=== PATIENT | male | born 1965 | race Two or more races ===

== ENCOUNTER 2016-08-26 14:08 | Inpatient (IN) | payer OTHER ==
--- NOTE | 2016-08-26 17:23 | HP ---
CIWA Score - CIWA Score Nausea/Vomitin Muscle Tremors: 3 Anxiety: 0-No Anxiety, at Ease Agitation: 3 Paroxysmal Sweats: No Perspiration Orientation: 0-Oriented Tacttile Disturbances: 0-None Auditory Disturbances: 0-None Visual Disturbances: 0-None Headache: 5-Severe CIWA-Ar Total Score: 14 Admission ROS BHS - HPI Chief Complaint: Withdrawal Sx Allergies/Adverse Reactions: Allergies Allergy/AdvReac Type Severity Reaction Status Date / Time No Known Allergies Allergy Verified 05/07/15 17:01 History of Present Illness: 51 year old male with a long hx of ETOH dependence and will be admitted for detox. Patient has been in previous detox. Denies significant sobriety. Last detox a year ago and relapsed after discharged. Exam Limitations: No Limitations - Ebola screening Have you traveled outside of the country in the last 21 days: No Have you had contact with anyone from an Ebola affected area: No Have you been sick,other than usual withdrawal symptoms: No Do you have a fever: No - Review of Systems Constitutional: No Symptoms Reported EENT: reports: No Symptoms Reported Respiratory: reports: No Symptoms reported Cardiac: reports: No Symptoms Reported GI: reports: Nausea : reports: No Symptoms Reported Musculoskeletal: reports: No Symptoms Reported Integumentary: reports: No Symptoms Reported Neuro: reports: Headache, Tremors Endocrine: reports: No Symptoms Reported Hematology: reports: No Symptoms Reported Psychiatric: reports: Orientated x3 Other Systems: Reviewed and Negative Patient History - Patient Medical History Hx Anemia: No Hx Asthma: No Hx Chronic Obstructive Pulmonary Disease (COPD): No Hx Cancer: No Hx Cardiac Disorders: No Hx Congestive Heart Failure: No Hx Hypertension: No Hx Hypercholesterolemia: No Hx Pacemaker: No HX Cerebrovascular Accident: No Hx Seizures: No Hx Dementia: No Hx Diabetes: No Hx Gastrointestinal Disorders: No Hx Liver Disease: No Hx Genitourinary Disorders: No Hx Sexually Transmitted Disorders: No Hx Renal Disease (ESRD): No Hx Thyroid Disease: No Hx Human Immunodeficiency Virus (HIV): No Hx Hepatitis C: No Hx Depression: No Hx Suicide Attempt: No Hx Bipolar Disorder: No Hx Schizophrenia: No - Patient Surgical History Past Surgical History: No Hx Neurologic Surgery: No Hx Cataract Extraction: No Hx Cardiac Surgery: No Hx Lung Surgery: No Hx Breast Surgery: No Hx Breast Biopsy: No Hx Abdominal Surgery: No Hx Appendectomy: No Hx Cholecystectomy: No Hx Genitourinary Surgery: No Hx Section: No Hx Orthopedic Surgery: No Anesthesia Reaction: No - PPD History Previous Implant?: Yes Documented Results: Negative w/proof Date: 03/30/16 Results: 0mm PPD to be Administered?: No - Smoking Cessation Smoking history: Current every day smoker Have you smoked in the past 12 months: Yes Aproximately how many cigarettes per day: 20 Cigars Per Day: 0 Hx Chewing Tobacco Use: No Initiated information on smoking cessation: Yes 'Breaking Loose' booklet given: 08/26/16 - Substance & Tx. History Hx Alcohol Use: Yes Hx Substance Use: Yes Substance Use Type: Alcohol, Cocaine Hx Substance Use Treatment: Yes (detox) - Substances Abused Alcohol Route: Oral Frequency: Daily Amount used: Vodka 1 pint, Beer 16 oz of 20 cans/day Age of first use: 18 Date of Last Use: 08/26/16 Cocaine Route: Smoking Frequency: 1-2 times per week Amount used: $100 Age of first use: 33 Date of Last Use: 08/25/16 Family Disease History - Family Disease History Family Disease History: Other: Mother (dementia) Admission Physical Exam [facility] - Vital Signs Vital Signs: Vital Signs - 24 hr 08/26/16 16:32 Temperature 96.0 F L Pulse Rate 102 H Respiratory 18 Rate Blood Pressure 109/60 - Physical General Appearance: Yes: Alcohol on Breath HEENTM: Yes: EOMI, Normocephalic Respiratory: Yes: Chest Non-Tender, Lungs Clear, Normal Breath Sounds Neck: Yes: No masses,lesions,Nodules, Supple Breast: Yes: Breast Exam Deferred Cardiology: Yes: Regular Rhythm, Regular Rate, S1, S2 Abdominal: Yes: Normal Bowel Sounds, Non Tender, Flat, Soft Genitourinary: Yes: Within Normal Limits Back: Yes: Within Normal Limits Musculoskeletal: Yes: Within Normal Limits Extremities: Yes: Within Normal Limits Neurological: Yes: Fully Oriented, Alert Integumentary: Yes: Within Normal Limits Lymphatic: Yes: Within Normal Limits Cleared for Admission [facility] - Detox or Rehab [facility] Level of Care: Medically Managed Detox Regimen/Protocol: Librium [facility] Breath Alcohol Content Breath Alcohol Content: 0.096 Urine Drug Screen - Results Drug Screen Negative: No Urine Drug Screen Results: KENIA-Cocaine
[2016-08-26] MEDS ORDERED: chlordiazePOXIDE HCL 25 MG CAPSULE PO PRN (17:38)
[2016-08-26] MEDS ORDERED: hydrOXYzine PAMOATE 50 MG CAPSULE (FP) PO PRN (17:38)
[2016-08-26] MEDS ORDERED: MAGNESIUM HYDROX 2400MG/30ML ORAL SUSPENSION 30 ML CUP PO PRN (17:38)
[2016-08-26] MEDS ORDERED: P-EPHED 60MG/TRIPROLIDI 2.5MG TABLET PO PRN (17:38)
[2016-08-26] MEDS ORDERED: LOPERAMIDE HCL 2 MG CAPSULE PO PRN (17:38)
[2016-08-26] MEDS ORDERED: ACETAMINOPHEN 325 MG TABLET (FP) PO PRN (17:38)
[2016-08-26] MEDS ORDERED: MAG HYDROX/AL HYDROX/SIMETH 30 ML UNIT-DOSE CUP PO PRN (17:38)
[2016-08-26] MEDS ORDERED: IBUPROFEN 400 MG TABLET (FP) PO PRN (17:38)
[2016-08-26] MEDS ORDERED: MAGNESIUM CITRATE 300 ML BOTTLE PO PRN (17:38)
[2016-08-26] MEDS ORDERED: NICOTINE POLACRILEX 2 MG GUM BC PRN (17:38)
[2016-08-26] MEDS ORDERED: MENTHOL/PHENOL 1 EACH UD MM PRN (17:38)
[2016-08-26] MEDS ORDERED: guaiFENesin/D-METHORPHAN HB 10 ML UNIT-DOSE CUPS PO PRN (17:38)
[2016-08-26] MEDS ORDERED: chlordiazePOXIDE HCL 25 MG CAPSULE PO ONE (18:45)
[2016-08-26] MEDS: NICOTINE 21 MG/24 HOURS TOPICAL PATCH TD SCH (19:01)
[2016-08-26] MEDS: THIAMINE HCL 100 MG TABLET (FP) PO SCH (22:28)
[2016-08-26] MEDS: chlordiazePOXIDE HCL 25 MG CAPSULE PO SCH (22:28)
[2016-08-26] MEDS: diphenhydrAMINE HCL 50 MG CAPSULE PO PRN (22:30)
[2016-08-26 23:06] LABS: PH,URINE 5.5 (5.0-8.0); URINE APPEARANCE CLEAR; URINE BILIRUBIN NEGATIVE (NEGATIVE); URINE BLOOD NEGATIVE (NEGATIVE); URINE COLOR LT. YELLOW; URINE GLUCOSE (UA) NEGATIVE (NEGATIVE); URINE KETONE NEGATIVE (NEGATIVE); URINE LEUK ESTERASE NEGATIVE (NEGATIVE); URINE NITRITE NEGATIVE (NEGATIVE); URINE PROTEIN NEGATIVE (NEGATIVE); URINE UROBILINOGEN 0.2 E.U/dl E.U./dl (0.2-1.0)
[2016-08-27] MEDS: chlordiazePOXIDE HCL 25 MG CAPSULE PO SCH ×4 (05:35→22:18)
--- NOTE | 2016-08-27 09:19 | PN ---
S CIWA - CIWA Score Nausea/Vomitin-No Nausea/No Vomiting Muscle Tremors: 4-Moderate,w/Arms Extend Anxiety: 4-Mod. Anxious/Guarded Agitation: 4-Moderately Restless Paroxysmal Sweats: 3 Orientation: 0-Oriented Tacttile Disturbances: 0-None Auditory Disturbances: 0-None Visual Disturbances: 0-None Headache: 1-Very Mild CIWA-Ar Total Score: 16 BHS Progress Note (SOAP) Subjective: sweats shakes interrupted sleep agitation headache Objective: 08/27/16 09:25 Vital Signs Temperature 95.9 F L 08/27/16 05:53 Pulse Rate 63 08/27/16 05:53 Respiratory Rate 16 08/27/16 05:53 Blood Pressure 100/51 08/27/16 05:53 O2 Sat by Pulse Oximetry (%) Laboratory Tests 08/26/16 22:27 Urine Color Lt. yellow Urine Appearance Clear Urine pH 5.5 Ur Specific [place] 1.020 Urine Protein Negative Urine Glucose (UA) Negative Urine Ketones Negative Urine Blood Negative Urine Nitrite Negative Urine Bilirubin Negative Urine Urobilinogen 0.2 e.u/dl Ur Leukocyte Esterase Negative labs pending awake/alert ambulating no acute distress Assessment: 08/27/16 09:26 withdrawal sx Plan: continue detox increase fluids labs pending tylenol/motrin prn
[2016-08-27 10:18] LABS: MCH 31.8 pg (25.7-33.7); MEAN CELL VOLUME 93.4 fl (80-96); PLATELET COUNT 224 K/MM3 (134-434); RDW 13.5 % (11.9-15.9); WHITE BLOOD COUNT 9.2 K/mm3 (4.0-10.0)
[2016-08-27 10:32] LABS: ALBUMIN 3.4 g/dl (3.4-5.0); ALK PHOS 111 U/L (45-117); ANION GAP 5 (8-16); CO2 30 mmol/L (21-32); CREATININE 0.9 mg/dL (0.7-1.3); GLUCOSE,RANDOM 83 mg/dL (74-106); SGOT/AST 21 U/L (15-37); SGPT/ALT 22 U/L (12-78); TOT PROT 6.1 g/dl (6.4-8.2)
[2016-08-27] MEDS: NICOTINE 21 MG/24 HOURS TOPICAL PATCH TD SCH (10:45)
[2016-08-27] MEDS: PRENATAL VITAMINS W/ FOLIC ACID TABLET (FP) PO SCH (10:46)
[2016-08-27 11:10] LABS: HIV 1 & 2 AB NEGATIVE; HIV 1 AGp24 NEGATIVE
[2016-08-27] MEDS ORDERED: INFLUENZA VACCINE 45 MCG/0.5 ML (MDV 16-17) IM ONE (12:00)
--- NOTE | 2016-08-27 16:32 | EKG ---
Test Reason : Blood Pressure : / mmHG Vent. Rate : 080 BPM Atrial Rate : 080 BPM P-R Int : 146 ms QRS Dur : 076 ms QT Int : 370 ms P-R-T Axes : 083 077 071 degrees QTc Int : 426 ms NORMAL SINUS RHYTHM NORMAL ECG NO PREVIOUS ECGS AVAILABLE Confirmed by DANNIELLE JAMES MD ([id number]) on 08/27/2016 4:32:25 PM Referred By: Confirmed By:DANNIELLE JAMES MD
[2016-08-27] MEDS: diphenhydrAMINE HCL 50 MG CAPSULE PO PRN (22:18)
[2016-08-27] MEDS: THIAMINE HCL 100 MG TABLET (FP) PO SCH (22:18)
[2016-08-28] MEDS: chlordiazePOXIDE HCL 25 MG CAPSULE PO SCH ×3 (05:51→18:30)
--- NOTE | 2016-08-28 09:40 | PN ---
S CIWA - CIWA Score Nausea/Vomitin Muscle Tremors: 3 Anxiety: 3 Agitation: 2 Paroxysmal Sweats: 2 Orientation: 0-Oriented Tacttile Disturbances: 0-None Auditory Disturbances: 0-None Visual Disturbances: 1-Very Mild Sensitivity Headache: 2-Mild CIWA-Ar Total Score: 15 S Progress Note (SOAP) Objective: 08/28/16 09:39 Laboratory Tests 08/26/16 08/27/16 08/27/16 22:27 06:30 06:30 WBC 9.2 RBC 4.26 Hgb 13.5 Hct 39.8 MCV 93.4 MCHC 34.0 RDW 13.5 Plt Count 224 D MPV 9.0 Sodium 140 Potassium 4.1 Chloride 105 Carbon Dioxide 30 Anion Gap 5 L BUN 13 Creatinine 0.9 Creat Clearance w eGFR > 60 Random Glucose 83 Calcium 9.0 Total Bilirubin 1.0 D AST 21 D ALT 22 Alkaline Phosphatase 111 Total Protein 6.1 L Albumin 3.4 Urine Color Lt. yellow Urine Appearance Clear Urine pH 5.5 Ur Specific [place] 1.020 Urine Protein Negative Urine Glucose (UA) Negative Urine Ketones Negative Urine Blood Negative Urine Nitrite Negative Urine Bilirubin Negative Urine Urobilinogen 0.2 e.u/dl Ur Leukocyte Esterase Negative RPR Titer HIV 1&2 Antibody Screen HIV P24 Antigen 08/27/16 08/27/16 06:30 08:40 WBC RBC Hgb Hct MCV MCHC RDW Plt Count MPV Sodium Potassium Chloride Carbon Dioxide Anion Gap BUN Creatinine Creat Clearance w eGFR Random Glucose Calcium Total Bilirubin AST ALT Alkaline Phosphatase Total Protein Albumin Urine Color Urine Appearance Urine pH Ur Specific [place] Urine Protein Urine Glucose (UA) Urine Ketones Urine Blood Urine Nitrite Urine Bilirubin Urine Urobilinogen Ur Leukocyte Esterase RPR Titer Nonreactive HIV 1&2 Antibody Screen Negative HIV P24 Antigen Negative Vital Signs - 24 hr 08/27/16 08/27/16 08/27/16 10:34 14:26 17:56 Temperature 98.1 F 97.9 F 96.3 F L Pulse Rate 81 77 66 Respiratory 20 16 16 Rate Blood Pressure 117/61 113/57 97/52 08/27/16 08/28/16 08/28/16 22:38 00:30 03:30 Temperature 97.7 F Pulse Rate 74 Respiratory 16 18 18 Rate Blood Pressure 110/64 08/28/16 06:28 Temperature 97.3 F L Pulse Rate 62 Respiratory 16 Rate Blood Pressure 105/88 Assessment: 08/28/16 09:39 ongoing withdrawal Plan: continue detox protocol
[2016-08-28] MEDS: NICOTINE 21 MG/24 HOURS TOPICAL PATCH TD SCH (10:27)
[2016-08-28] MEDS: PRENATAL VITAMINS W/ FOLIC ACID TABLET (FP) PO SCH (10:27)
[2016-08-28] MEDS: THIAMINE HCL 100 MG TABLET (FP) PO SCH (22:43)
[2016-08-28] MEDS: diphenhydrAMINE HCL 50 MG CAPSULE PO PRN (22:43)
[2016-08-28] MEDS: chlordiazePOXIDE 5 MG CAPSULE PO SCH (22:43)
[2016-08-29] MEDS: chlordiazePOXIDE 5 MG CAPSULE PO SCH ×3 (05:42→17:42)
[2016-08-29] MEDS: PRENATAL VITAMINS W/ FOLIC ACID TABLET (FP) PO SCH (10:18)
[2016-08-29] MEDS: NICOTINE 21 MG/24 HOURS TOPICAL PATCH TD SCH (10:18)
--- NOTE | 2016-08-29 13:29 | PN ---
S Progress Note (SOAP) Subjective: ALERT,,IRRITABLE,INTERRUPTED SLEEP Objective: 08/29/16 13:28 Vital Signs Temperature 96.8 F L 08/29/16 10:00 Pulse Rate 65 08/29/16 10:00 Respiratory Rate 18 08/29/16 10:00 Blood Pressure 120/71 08/29/16 10:00 O2 Sat by Pulse Oximetry (%) Assessment: 08/29/16 13:28 WITHDRAWAL SYMPTOM Plan: CONTINUE DETOX,DISCHARGE IN AM
[2016-08-29] MEDS: THIAMINE HCL 100 MG TABLET (FP) PO SCH (22:12)
[2016-08-29] MEDS: chlordiazePOXIDE HCL 10 MG CAPSULE PO SCH (22:12)
[2016-08-30] MEDS: chlordiazePOXIDE HCL 10 MG CAPSULE PO SCH (06:50)
[2016-08-30 07:16] VITALS: BP 110/58; PULSE 60; TEMP 97.7
--- NOTE | 2016-08-30 08:56 | PN ---
S Progress Note (SOAP) Subjective: ALERT,NO COMPLAINT Objective: 08/30/16 08:55 Vital Signs Temperature 97.7 F 08/30/16 06:00 Pulse Rate 60 08/30/16 06:00 Respiratory Rate 16 08/30/16 06:00 Blood Pressure 110/58 08/30/16 06:00 O2 Sat by Pulse Oximetry (%) Assessment: 08/30/16 08:55 DETOX COMPLETED,NO WITHDRAWAL SYMPTOM Plan: DISCHARGE TODAY,FOLLOWUP WITH AFTER CARE PROGRAM ARRANGEMENT
--- NOTE | 2016-08-30 08:59 | DS ---
[facility] Detox Discharge Summary Admission Date: 08/26/16 Discharge Date: 08/30/16 - History Present History: Alcohol Dependence, Cocaine Dependence Additional Comments: FOLLOW WITH AFTER CARE PROGRAM ARRANGEMENT - Physical Exam Results Vital Signs: Vital Signs Temperature 97.7 F 08/30/16 06:00 Pulse Rate 60 08/30/16 06:00 Respiratory Rate 16 08/30/16 06:00 Blood Pressure 110/58 08/30/16 06:00 O2 Sat by Pulse Oximetry (%) Pertinent Admission Physical Exam Findings: WITHDRAWAL SYMPTOM - Treatment Hospital Course: Detox Protocol Followed, Detoxed Safely, Responded well, Discharged Condition Good Patient has Accepted a Rehab Referral to: [facility]ED - Medication Discharge Medications: Ambulatory Orders NK [No Known Home Medication] 08/26/16 - Diagnosis (1) Alcohol dependence with uncomplicated withdrawal Current Visit: No Status: Acute (2) Cocaine dependence Current Visit: No Status: Chronic Qualifiers: Substance use status: uncomplicated Qualified Code(s): F14.20 - Cocaine dependence, uncomplicated (3) Nicotine dependence Current Visit: No Status: Chronic Qualifiers: Nicotine product type: cigarettes Substance use status: uncomplicated Qualified Code(s): F17.210 - Nicotine dependence, cigarettes, uncomplicated - AMA Did Patient Leave Against Medical Advice: No
== END 2016-08-30 09:38 | disposition home or self-care (01) | DRG 774 ==
LOC: YASAS 14:08 → Y6N 18:35
PROVIDERS: ADMIT Internal Medicine Addiction Medicine; ATTEND Internal Medicine Addiction Medicine
PROC: HZ2ZZZZ Detoxification Services for Substance Abuse Treatment (ICD-10-PCS; principal; 2016-08-26)
DX: F10.230 Alcohol dependence with withdrawal, uncomplicated (principal); F14.20 Cocaine dependence, uncomplicated; F17.210 Nicotine dependence, cigarettes, uncomplicated
CPT/HCPCS: 36415; 80053; 81003; 85027; 86593; 87389; 93005; 93010; G0008; Q2037

== ENCOUNTER 2019-01-07 12:46 | Inpatient (IN) | payer OTHER | END 2019-01-09 10:55 | disposition home or self-care (01) | LOC: YASAS 12:46 → Y3N 14:20 ==

== ENCOUNTER 2020-03-11 12:26 | Inpatient (IN) | payer OTHER ==
--- NOTE | 2020-03-11 12:43 | BHS.RME ---
Substance Use & Tx History - Substance Use History Alcohol Substance amount: 1 pint Vodka, 2 x 16 ounce beer Frequency of use: Daily Substance route: Oral Date of Last Use: 03/11/20 (First drink 18 y, Seizure x 2, last was one month ago. Blackouts, last was one month ago. 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) Nicotine Substance amount: 10 cigs Frequency of use: Daily Substance route: Smoking Date of Last Use: 03/11/20 (First use age 14 y) - Last Treatment Date of last treatment: 12/19 to 12/20 left AMA from [facility] Treatment type: Substance Use Disorder (SPENCER) Physical/Psych/Mental Status - Behavior General Behavior: Increased activity (restlessness, agitation) Eye Contact: Normal - Cooperativeness Cooperativeness: Cooperative - Thinking Thought Processes: Tight Thought content: Future oriented - Physical Health Problems Is patient presently having any pain?: No Does patient presently have any injuries (include location): No Does patient currently have a fever: No CIWA Nausea/Vomitin-Mild Nausea/No Vomiting Muscle Tremors: None Anxiety: 2 Agitation: 1-Slight > Activity Paroxysmal Sweats: No Perspiration Orientation: 2-Disoriented Date<2 days Tacttile Disturbances: 0-None Auditory Disturbances: 0-None Visual Disturbances: 0-None Headache: 3-Moderate CIWA-Ar Total Score: 9
--- NOTE | 2020-03-11 13:00 | HP ---
CIWA Score Nausea/Vomitin-Mild Nausea/No Vomiting Muscle Tremors: None Anxiety: 2 Agitation: 1-Slight > Activity Paroxysmal Sweats: No Perspiration Orientation: 2-Disoriented Date<2 days Tacttile Disturbances: 0-None Auditory Disturbances: 0-None Visual Disturbances: 0-None Headache: 3-Moderate CIWA-Ar Total Score: 9 - Admission Criteria [facility]ASAS Guidelines: Admission for Medically Managed Detox: Requires at least one of the followin. CIWA greater than 12 2. Seizures within the past 24 hours 3. Delirium tremens within the past 24 hours 4. Hallucinations within the past 24 hours 5. Acute intervention needed for co occurring medical disorder 6. Acute intervention needed for co occurring psychiatric disorder 7. Severe withdrawal that cannot be handled at a lower level of care (continued vomiting, continued diarrhea, abnormal vital signs) requiring intravenous medication and/or fluids 8. Admitting History and Physical - Admission Chief Complaint: Mr. Ramsey is a 54 yo man who presents to [facility] requesting detox from alcohol. History of Present Illness: Mr. Ramsey is a 54 yo man who presents to [facility] requesting detox from alcohol. He left AMA after his last 2 admissions. PMH/PSH/Psych/legal: none SOC: homeless Substance Use History Alcohol Substance amount: 1 pint Vodka, 2 x 16 ounce beer Frequency of use: Daily Substance route: Oral Date of Last Use: 03/11/20 (First drink 18 y, Seizure x 2, last was one month ago. Blackouts, last was one month ago. 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) Nicotine Substance amount: 10 cigs Frequency of use: Daily Substance route: Smoking Date of Last Use: 03/11/20 (First use age 14 y) - Last Treatment Date of last treatment: 12/19 to 12/20 left AMA from [facility] Treatment type: Substance Use Disorder (SPENCER) History Source: Patient Limitations to Obtaining History: No Limitations - Past Surgical History Past Surgical History: Yes: None - Smoking History Smoking history: Current every day smoker Have you smoked in the past 12 months: Yes Aproximately how many cigarettes per day: 10 - Alcohol/Substance Use Hx Alcohol Use: Yes - Social History ADL: Independent 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 History of Recent Travel: No Admission ROS [facility] Allergies/Adverse Reactions: Allergies Allergy/AdvReac Type Severity Reaction Status Date / Time No Known Allergies Allergy Verified 12/20/19 15:02 Exam Limitations: No Limitations - Ebola screening Have you traveled outside of the country in the last 21 days: No Have you been sick,other than usual withdrawal symptoms: No Do you have a fever: No - Review of Systems Constitutional: No Symptoms Reported EENT: reports: No Symptoms Reported Respiratory: reports: No Symptoms reported Cardiac: reports: No Symptoms Reported GI: reports: No Symptoms Reported Musculoskeletal: reports: No Symptoms Reported Integumentary: reports: No Symptoms Reported Neuro: reports: No Symptoms reported Endocrine: reports: No Symptoms Reported Hematology: reports: No Symptoms Reported Psychiatric: reports: No Sypmtoms Reported Patient History - Patient Medical History Hx Anemia: No Hx Asthma: No Hx Chronic Obstructive Pulmonary Disease (COPD): No Hx Cancer: No Hx Cardiac Disorders: No Hx Congestive Heart Failure: No Hx Hypertension: No Hx Hypercholesterolemia: No Hx Pacemaker: No HX Cerebrovascular Accident: No Hx Seizures: No Hx Dementia: No Hx Diabetes: No Hx Gastrointestinal Disorders: No Hx Liver Disease: No Hx Genitourinary Disorders: No Hx Sexually Transmitted Disorders: No Hx Renal Disease (ESRD): No Hx Thyroid Disease: No Hx Human Immunodeficiency Virus (HIV): No (last negative 2017) Hx Hepatitis C: No Hx Depression: No Hx Suicide Attempt: No Hx Bipolar Disorder: No Hx Schizophrenia: No - Patient Surgical History Past Surgical History: No Hx Neurologic Surgery: No Hx Cataract Extraction: No Hx Cardiac Surgery: No Hx Lung Surgery: No Hx Breast Surgery: No Hx Breast Biopsy: No Hx Abdominal Surgery: No Hx Appendectomy: No Hx Cholecystectomy: No Hx Genitourinary Surgery: No Hx Section: No Hx Orthopedic Surgery: No Anesthesia Reaction: No - PPD History Date: 12/22/19 Results: 0mm - Smoking Cessation Smoking history: Current every day smoker Have you smoked in the past 12 months: Yes Aproximately how many cigarettes per day: 10 Cigars Per Day: 0 Hx Chewing Tobacco Use: No Initiated information on smoking cessation: Yes 'Breaking Loose' booklet given: 03/11/20 Admission Physical Exam [facility] - Physical General Appearance: Yes: No Apparent Distress, Appropriately Dressed, Thin HEENTM: Yes: EOMI, Hearing grossly Normal, Normocephalic, Normal Voice Respiratory: Yes: Lungs Clear, Normal Breath Sounds, No Respiratory Distress, No Accessory Muscle Use Neck: Yes: Within Normal Limits, Supple Breast: Yes: Breast Exam Deferred Cardiology: Yes: Regular Rhythm, Regular Rate, S1, S2 Abdominal: Yes: Normal Bowel Sounds, Non Tender, Flat, Soft Genitourinary: Yes: Other (deferred) Back: Yes: Normal Inspection Musculoskeletal: Yes: Gait Steady Extremities: Yes: Normal Inspection, Non-Tender Neurological: Yes: Alert, Normal Mood/Affect, Normal Response Integumentary: Yes: Normal Color, Dry, Warm, Other (acne on back) - Diagnostic (1) Homeless Current Visit: Yes Status: Acute (2) Alcohol dependence with uncomplicated withdrawal Current Visit: Yes Status: Acute (3) Nicotine dependence Current Visit: No Status: Acute Qualifiers: Nicotine product type: cigarettes Substance use status: uncomplicated Qualified Code(s): F17.210 - Nicotine dependence, cigarettes, uncomplicated (4) Insomnia Current Visit: Yes Status: Acute Cleared for Admission S - Detox or Rehab [facility] Level of Care: Medically Managed Detox Regimen/Protocol: Ativan Breathalyzer - Breathalyzer Breathalyzer: 0.300 Urine Drug Screen - Test Device Lot number: [id number] Expiration date: 04/15/20 - Control Is test valid?: Yes - Results Drug screen NEGATIVE: Yes Inpatient Rehab Admission - Rehab Decision to Admit Inpatient rehab admission?: No
[2020-03-11] MEDS ORDERED: MENTHOL/PHENOL 1 EACH UD MM PRN (13:11)
[2020-03-11] MEDS ORDERED: MAG HYDROX/AL HYDROX/SIMETH 30 ML UNIT-DOSE CUP PO PRN (13:11)
[2020-03-11] MEDS ORDERED: MAGNESIUM HYDROX 2400MG/30ML ORAL SUSPENSION 30 ML CUP PO PRN (13:11)
[2020-03-11] MEDS ORDERED: MAGNESIUM CITRATE 300 ML BOTTLE PO PRN (13:11)
[2020-03-11] MEDS ORDERED: ONDANSETRON *ODT* 4 MG TABLET SL PRN (13:11)
[2020-03-11] MEDS ORDERED: BISMUTH SUBSALICYLATE 262 MG/15 ML BTL PO PRN (13:11)
[2020-03-11] MEDS ORDERED: LORazepam 1 MG TABLET PO PRN (13:11)
[2020-03-11] MEDS ORDERED: NICOTINE POLACRILEX 2 MG GUM BUC PRN (13:11)
[2020-03-11] MEDS ORDERED: METHOCARBAMOL 500 MG TABLET PO PRN (13:11)
[2020-03-11] MEDS ORDERED: IBUPROFEN 400 MG TABLET (FP) PO PRN (13:11)
[2020-03-11] MEDS ORDERED: ACETAMINOPHEN 325 MG TABLET (FP) PO PRN ×2 (13:11)
[2020-03-11] MEDS ORDERED: NICOTINE 14 MG/24 HOURS TOPICAL PATCH TD SCH (13:30)
[2020-03-11 14:17] VITALS: BMI 19.8
--- NOTE | 2020-03-11 14:39 | CONSULT ---
[facility] Psychiatric Consult - Data Date of interview: 03/11/20 Admission source: Self-referred Identifying data: Mr Ramsey is a 54 years old single [place] male, unemployed with no source of income, homeless seeking detox treatment for alcohol Substance Abuse History: Reports history of alcohol use. Refer to addiction counselor's summary for further information Medical History: Unremarkable except for history of alcohol related seizure. Smokes 10 cigarettes daily Psychiatric History: Patient is known for multiple previous admissions to this facility. He denies history of previous psychiatric treatment. However, reports feeling anxious and sleeping poorly Physical/Sexual Abuse/Trauma History: Denies history of abuse as a child or DV relationship as an adult Mental Status Exam - Mental Status Exam Alert and Oriented to: Time, Place, Person Cognitive Function: Fair Mood: Anxious Affect: Appropriate Patient Behavior: Cooperative Speech Pattern: Clear Voice Loudness: Normal Thought Process: Intact, Goal Oriented Hallucinations: Denies Suicidal Ideation: Denies Homicidal Ideation: Denies Insight/Judgement: Poor Sleep: Poorly Appetite: Poor Muscle strength/Tone: Normal Gait/Station: Normal Psychiatric Findings - Problem List ([place] 1, 2,3) (1) Alcohol-induced anxiety disorder Current Visit: Yes Status: Acute (2) Alcohol-induced sleep disorder Current Visit: Yes Status: Acute (3) Alcohol dependence with uncomplicated withdrawal Current Visit: Yes Status: Acute (4) Nicotine dependence Current Visit: No Status: Chronic Qualifiers: Nicotine product type: cigarettes Substance use status: uncomplicated Qualified Code(s): F17.210 - Nicotine dependence, cigarettes, uncomplicated (5) Alcohol related seizure Current Visit: Yes Status: Resolved - Initial Treatment Plan Initial Treatment Plan: 1) Start Melatonin 10 mg po HS prn for insomnia. 2) Continue inpatient detoxification
[2020-03-11] MEDS ORDERED: MELATONIN 5 MG TABLETS PO PRN (14:50)
[2020-03-11] MEDS: hydrOXYzine PAMOATE 25 MG CAPSULE (FP) PO SCH ×3 (14:55→22:39)
[2020-03-11 16:46] LABS: HEMATOCRIT 36.9 % (35.4-49); HEMOGLOBIN 12.3 GM/dL (11.7-16.9); MCH 31.5 pg (25.7-33.7); MCHC 33.2 g/dl (32.0-35.9); MEAN CELL VOLUME 94.9 fl (80-96); MEAN PLT VOLUME 8.3 fl (7.5-11.1); PLATELET COUNT 201 K/MM3 (134-434); RBC 3.89 M/mm3 (4.00-5.60); RDW 15.5 % (11.9-15.9); WHITE BLOOD COUNT 4.4 K/mm3 (4.0-10.0)
[2020-03-11 16:53] LABS: ALBUMIN 3.7 g/dl (3.4-5.0); BILIRUBIN,TOTAL 0.7 mg/dL (0.2-1); BLOOD UREA NITROGEN 12.9 mg/dL (7-18); CREATININE 0.9 mg/dL (0.55-1.3); POTASSIUM 3.8 mmol/L (3.5-5.1)
[2020-03-11] MEDS: LORazepam 2 MG TABLET PO SCH ×2 (18:02→22:39)
[2020-03-11] MEDS ORDERED: MELATONIN 5 MG TABLETS PO SCH (22:00)
[2020-03-11] MEDS ORDERED: THIAMINE HCL 100 MG TABLET (FP) PO SCH (22:00)
[2020-03-12] MEDS: LORazepam 2 MG TABLET PO SCH (06:26)
[2020-03-12] MEDS: hydrOXYzine PAMOATE 25 MG CAPSULE (FP) PO SCH (06:26)
--- NOTE | 2020-03-12 09:32 | PN ---
S CIWA - CIWA Score Nausea/Vomitin-No Nausea/No Vomiting Muscle Tremors: 3 Anxiety: 2 Agitation: 0-Normal Activity Paroxysmal Sweats: No Perspiration Orientation: 0-Oriented (uncertain about day by one day.) Tacttile Disturbances: 0-None Auditory Disturbances: 0-None Visual Disturbances: 0-None Headache: 0-None Present CIWA-Ar Total Score: 5 BHS Progress Note (SOAP) Subjective: admitted yesterday for detox Objective: 03/12/20 10:35 Vital Signs - 24 hr 03/11/20 03/11/20 03/11/20 14:14 14:54 16:40 Temperature 97.6 F 98.0 F 98.2 F Pulse Rate 96 H 63 91 H Respiratory 20 18 18 Rate Blood Pressure 126/73 104/60 112/65 O2 Sat by Pulse 96 Oximetry (%) 03/11/20 03/11/20 03/12/20 20:27 21:35 05:48 Temperature 98.7 F 97.7 F Pulse Rate 73 62 Respiratory 18 18 Rate Blood Pressure 136/72 142/75 O2 Sat by Pulse 96 96 97 Oximetry (%) 03/12/20 09:23 Temperature 97.5 F L Pulse Rate 80 Respiratory 16 Rate Blood Pressure 134/73 O2 Sat by Pulse 98 Oximetry (%) Laboratory Tests 03/11/20 03/11/20 03/11/20 13:20 13:20 13:20 WBC 4.4 RBC 3.89 L Hgb 12.3 Hct 36.9 MCV 94.9 MCH 31.5 MCHC 33.2 RDW 15.5 D Plt Count 201 MPV 8.3 Sodium 141 Potassium 3.8 Chloride 106 Carbon Dioxide 25 Anion Gap 10 BUN 12.9 Creatinine 0.9 Est GFR (CKD-EPI)AfAm 110.27 Est GFR (CKD-EPI)NonAf 95.14 Random Glucose 134 H Calcium 8.0 L Total Bilirubin 0.7 AST 68 H ALT 40 Alkaline Phosphatase 122 H Total Protein 7.0 Albumin 3.7 Syphilis Serology Non-reactive covid-19 result pending Alert o x 3 nad oob ambulating with steady gait Assessment: 03/12/20 10:37 mild withdrawal sx stable Plan: cont detox increase po fluids maintain safety
[2020-03-12] MEDS ORDERED: PRENATAL VITAMINS W/ FOLIC ACID TABLET (FP) PO SCH (10:00)
[2020-03-12 10:35] VITALS: BP 134/73; PULSE 80; TEMP 97.5
--- NOTE | 2020-03-12 10:42 | DS ---
[facility] Detox Discharge Summary Admission Date: 03/11/20 Discharge Date: 03/12/20 - History Present History: Alcohol Dependence, Cocaine Dependence Additional Comments: Pt declined to continue with detox for personal reasons. All efforts to encourage pt to stay in treatment was unsuccessful. Pt met with counselor, Ms Maria G Isaac and was referred to follow up with [facility], [address] [place] [address], 7th floor. Pt instructed to follow up at [facility] clinic for medical management when needed. Pertinent Past History: Hx Epistaxis Hx Alcohol related Seizure Hx Anxiety disorder Hx Sleep Disorder - Physical Exam Results Vital Signs: Vital Signs Temperature 97.5 F L 03/12/20 09:23 Pulse Rate 80 03/12/20 09:23 Respiratory Rate 16 03/12/20 09:23 Blood Pressure 134/73 03/12/20 09:23 O2 Sat by Pulse Oximetry (%) 98 03/12/20 09:23 Alert o x 3;denies s/h/i nad oob ambulating with steady gait Pertinent Admission Physical Exam Findings: Laboratory Results - last 24 hr 03/11/20 03/11/20 03/11/20 13:20 13:20 13:20 WBC 4.4 RBC 3.89 L Hgb 12.3 Hct 36.9 MCV 94.9 MCH 31.5 MCHC 33.2 RDW 15.5 D Plt Count 201 MPV 8.3 Sodium 141 Potassium 3.8 Chloride 106 Carbon Dioxide 25 Anion Gap 10 BUN 12.9 Creatinine 0.9 Est GFR (CKD-EPI)AfAm 110.27 Est GFR (CKD-EPI)NonAf 95.14 Random Glucose 134 H Calcium 8.0 L Total Bilirubin 0.7 AST 68 H ALT 40 Alkaline Phosphatase 122 H Total Protein 7.0 Albumin 3.7 Syphilis Serology Non-reactive covid-19 result pending - Treatment Hospital Course: Discharged Condition Good, Rehab Referral Accepted Patient has Accepted a Rehab Referral to: [place], [place] - Medication Discharge Medications: Ambulatory Orders NK [No Known Home Medication] 12/20/19 - Diagnosis (1) Alcohol dependence with uncomplicated withdrawal Status: Acute (2) Nicotine dependence Status: Acute Qualifiers: Nicotine product type: cigarettes Substance use status: in withdrawal Qualified Code(s): F17.213 - Nicotine dependence, cigarettes, with withdrawal - AMA Did Patient Leave Against Medical Advice: Yes
[2020-03-13] MEDS ORDERED: LORazepam 1 MG TABLET PO SCH (05:00)
[2020-03-14] MEDS ORDERED: LORazepam 0.5 MG TABLET PO PRN
[2020-03-14] MEDS ORDERED: LORazepam 0.5 MG TABLET PO SCH (05:00)
[2020-03-15] MEDS ORDERED: LORazepam 0.5 MG TABLET PO ONE (05:00)
== END 2020-03-12 09:35 | disposition home or self-care (01) | DRG 775 ==
LOC: YASAS 12:26 → Y5N DETOX 14:15
PROVIDERS: ADMIT Allergy & Immunology; ATTEND Allergy & Immunology
PROC: HZ2ZZZZ Detoxification Services for Substance Abuse Treatment (ICD-10-PCS; principal; 2020-03-11)
DX: F10.230 Alcohol dependence with withdrawal, uncomplicated (principal); F17.210 Nicotine dependence, cigarettes, uncomplicated; F19.280 Other psychoactive substance dependence with psychoactive substance-induced anxiety disorder; F19.282 Other psychoactive substance dependence with psychoactive substance-induced sleep disorder; G47.00 Insomnia, unspecified; Z86.69 Personal history of other diseases of the nervous system and sense organs; Z56.0 Unemployment, unspecified; Z59.0 Homelessness
CPT/HCPCS: 36415; 80053; 85027; 86780; U0003

== ENCOUNTER 2020-09-25 18:08 | Inpatient (IN) | payer OTHER ==
[2020-09-25] MEDS ORDERED: IBUPROFEN 400 MG TABLET (FP) PO PRN (19:26)
[2020-09-25] MEDS ORDERED: ONDANSETRON *ODT* 4 MG TABLET SL PRN (19:26)
[2020-09-25] MEDS ORDERED: BISMUTH SUBSALICYLATE 524 MG/30 ML UD PO PRN (19:26)
[2020-09-25] MEDS ORDERED: MAG HYDROX/AL HYDROX/SIMETH 30 ML UNIT-DOSE CUP PO PRN (19:26)
[2020-09-25] MEDS ORDERED: MAGNESIUM HYDROX 2400MG/30ML ORAL SUSPENSION 30 ML CUP PO PRN (19:26)
[2020-09-25] MEDS ORDERED: LORazepam 1 MG TABLET PO PRN (19:26)
[2020-09-25] MEDS ORDERED: METHOCARBAMOL 500 MG TABLET PO PRN (19:26)
[2020-09-25] MEDS ORDERED: ACETAMINOPHEN 325 MG TABLET (FP) PO PRN (19:26)
[2020-09-25] MEDS ORDERED: MAGNESIUM CITRATE 300 ML BOTTLE PO PRN (19:26)
[2020-09-25] MEDS ORDERED: MENTHOL/PHENOL 1 EACH UD MM PRN (19:26)
[2020-09-25 19:44] VITALS: BMI 20.7
[2020-09-25] MEDS: PRENATAL VITAMINS W/ FOLIC ACID TABLET (FP) PO SCH (20:28)
[2020-09-25] MEDS ORDERED: QUEtiapine FUMARATE 25 MG TABLET PO ONE (22:00)
[2020-09-25] MEDS: LORazepam 2 MG TABLET PO SCH (22:39)
[2020-09-25] MEDS: THIAMINE HCL 100 MG TABLET (FP) PO SCH (22:39)
[2020-09-25] MEDS: hydrOXYzine PAMOATE 25 MG CAPSULE (FP) PO SCH (22:41)
[2020-09-25] MEDS: MELATONIN 5 MG TABLETS PO SCH (22:41)
[2020-09-26] MEDS: LORazepam 2 MG TABLET PO SCH ×4 (06:46→22:31)
[2020-09-26] MEDS: hydrOXYzine PAMOATE 25 MG CAPSULE (FP) PO SCH ×5 (06:46→22:32)
[2020-09-26] MEDS: PRENATAL VITAMINS W/ FOLIC ACID TABLET (FP) PO SCH (10:08)
[2020-09-26 11:51] LABS: HEMOGLOBIN 12.5 GM/dL (11.7-16.9); MCH 30.8 pg (25.7-33.7); MCHC 33.7 g/dl (32.0-35.9); MEAN CELL VOLUME 91.6 fl (80-96); PLATELET COUNT 217 K/MM3 (134-434); RBC 4.05 M/mm3 (4.00-5.60); RDW 15.4 % (11.9-15.9); WHITE BLOOD COUNT 6.4 K/mm3 (4.0-10.0)
[2020-09-26 11:53] LABS: POTASSIUM 3.9 mmol/L (3.5-5.1)
[2020-09-26 11:56] LABS: ALBUMIN 3.1 g/dl (3.4-5.0); CALCIUM 8.7 mg/dL (8.5-10.1)
[2020-09-26 12:00] LABS: CREATININE 0.6 mg/dL (0.55-1.3)
[2020-09-26 12:01] LABS: BILIRUBIN,TOTAL 1.8 mg/dL (0.2-1); TOT PROT 5.9 g/dl (6.4-8.2)
[2020-09-26] MEDS: THIAMINE HCL 100 MG TABLET (FP) PO SCH (22:31)
[2020-09-26] MEDS: MELATONIN 5 MG TABLETS PO SCH (22:32)
[2020-09-27] MEDS: LORazepam 1 MG TABLET PO SCH ×4 (05:19→22:21)
[2020-09-27] MEDS: hydrOXYzine PAMOATE 25 MG CAPSULE (FP) PO SCH ×5 (05:19→22:22)
[2020-09-27] MEDS: PRENATAL VITAMINS W/ FOLIC ACID TABLET (FP) PO SCH (10:51)
[2020-09-27 11:16] LABS: POTASSIUM 4.5 mmol/L (3.5-5.1)
[2020-09-27 11:21] LABS: BLOOD UREA NITROGEN 5.7 mg/dL (7-18); CALCIUM 8.7 mg/dL (8.5-10.1)
[2020-09-27 11:25] LABS: CREATININE 0.7 mg/dL (0.55-1.3)
[2020-09-27 11:27] LABS: BILIRUBIN,TOTAL 1.3 mg/dL (0.2-1)
[2020-09-27] MEDS: THIAMINE HCL 100 MG TABLET (FP) PO SCH (22:22)
[2020-09-27] MEDS: MELATONIN 5 MG TABLETS PO SCH (22:22)
[2020-09-28] MEDS ORDERED: LORazepam 0.5 MG TABLET PO PRN
[2020-09-28] MEDS: LORazepam 0.5 MG TABLET PO SCH ×4 (05:39→22:54)
[2020-09-28] MEDS: hydrOXYzine PAMOATE 25 MG CAPSULE (FP) PO SCH ×5 (05:39→22:56)
[2020-09-28] MEDS: PRENATAL VITAMINS W/ FOLIC ACID TABLET (FP) PO SCH (10:56)
[2020-09-28] MEDS: MELATONIN 5 MG TABLETS PO SCH (22:55)
[2020-09-28] MEDS: THIAMINE HCL 100 MG TABLET (FP) PO SCH (22:56)
[2020-09-29] MEDS ORDERED: LORazepam 0.5 MG TABLET PO ONE (05:00)
[2020-09-29] MEDS: hydrOXYzine PAMOATE 25 MG CAPSULE (FP) PO SCH ×2 (06:10→10:48)
[2020-09-29 07:18] VITALS: BP 127/76; PULSE 60; TEMP 97.8
[2020-09-29] MEDS: PRENATAL VITAMINS W/ FOLIC ACID TABLET (FP) PO SCH (10:48)
== END 2020-09-29 10:56 | disposition home or self-care (01) | DRG 775 ==
LOC: YASAS 18:08 → Y6N 19:28
PROVIDERS: ADMIT Allergy & Immunology; ATTEND Allergy & Immunology
PROC: HZ2ZZZZ Detoxification Services for Substance Abuse Treatment (ICD-10-PCS; principal; 2020-09-25)
DX: F10.230 Alcohol dependence with withdrawal, uncomplicated (principal); F17.213 Nicotine dependence, cigarettes, with withdrawal; F19.24 Other psychoactive substance dependence with psychoactive substance-induced mood disorder; R63.4 Abnormal weight loss; Z68.20 Body mass index [BMI] 20.0-20.9, adult; Z56.0 Unemployment, unspecified
CPT/HCPCS: 36415; 80053; 85027; 86780; 93005; 93010; C9803; U0003